=== PATIENT | female | born 1990 | race Caucasian/White ===

== ENCOUNTER 2018-06-09 08:52 | Observation (INO) | payer OTHER ==
[~2018-06-09] VITALS: Ht 152.4 cm; Wt 77.6 kg
[~2018-06-09 08:52] MED LIST: IBUP-2070 PO; PREN1TAB80 PO
[2018-06-09 09:28] VITALS: BP 116/66
== END 2018-06-09 11:00 | disposition home or self-care (01) ==
LOC: 4S 08:52
PROVIDERS: ADMIT Obstetrics & Gynecology; ATTEND Obstetrics & Gynecology
DX: O40.3XX0 Polyhydramnios, third trimester, not applicable or unspecified (principal); Z3A.38 38 weeks gestation of pregnancy
CPT/HCPCS: 81002; G0378

== ENCOUNTER 2018-06-13 08:03 | Inpatient (IN) | payer OTHER ==
[~2018-06-13] VITALS: Ht 159 cm; Wt 76.7 kg
[2018-06-13] MEDS ORDERED: OXYTOCIN 30 UNITS/LACT RINGERS 500 ML IV ONE (08:04)
[2018-06-13] MEDS ORDERED: LIDOCAINE/PF 1% 30 ML VIAL INJ PRN (08:15)
[2018-06-13] MEDS ORDERED: METOCLOPRAMIDE HCL 5 MG/ML 2 ML VIAL IVP PRN (08:15)
[2018-06-13] MEDS ORDERED: OXYGEN THERAPY IH SCH (08:15)
[2018-06-13] MEDS ORDERED: CITRIC ACID/SODIUM CITRATE 30 ML SOLUTION UDCUP PO PRN (08:15)
[2018-06-13] MEDS ORDERED: FentaNYL CITRATE-PF 100 MCG/2 ML VIAL IVP PRN (08:15)
[2018-06-13] MEDS ORDERED: PNV1TABL54 PO (08:22)
[2018-06-13 08:26] VITALS: BP 110/61
[2018-06-13] MEDS: RINGERS SOLUTION,LACTATED 1,000 ML IV SCH ×3 (08:44→19:33)
[2018-06-13 08:59] LABS: BASOPHILS % (AUTO) 0.2 % (0.0-2.0); EOSINOPHILS % (AUTO) 0.4 % (1.0-6.0); HEMATOCRIT 39.1 % (36-46); HEMOGLOBIN 13.6 g/dL (12.0-16.0); LYMPHOCYTES # (AUTO) 1.4 K/uL (1.0-4.8); LYMPHOCYTES % (AUTO) 18.4 % (22.0-44.0); MEAN CORPUSCULAR HEMOGLOBIN 31.2 pg (26.0-34.0); MEAN CORPUSCULAR HGB CONC 34.7 G/dL (31.0-37.0); MEAN CORPUSCULAR VOLUME 90 fL (80-100); MONOCYTES # (AUTO) 0.6 K/uL (0.1-1.0); MONOCYTES % (AUTO) 7.6 % (2.0-9.0); NEUTROPHILS # (AUTO) 5.5 K/uL (1.8-7.7); NEUTROPHILS % (AUTO) 73.4 % (40.0-70.0); PLATELET COUNT (AUTO) 149 K/uL (150-450); RED BLOOD CELL COUNT(AUTO) 4.36 MIL/uL (4.00-5.20); RED CELL DISTRIBUTION WIDTH 13.3 % (11.5-14.5)
[2018-06-13] MEDS ORDERED: DINOPROSTONE 10 MG VAGINAL SUPPOSITORY VG ONE (09:15)
[2018-06-13] MEDS: RINGERS SOLUTION,LACTATED 1,000 ML IV PRN ×2 (19:28→20:34)
[2018-06-13] MEDS ORDERED: BUTORPHANOL TARTRATE 2 MG/ML VIAL IVP PRN (20:00)
[2018-06-13] MEDS ORDERED: ROPIVACAINE HCL/PF 0.2% 100 ML ED ONE (20:11)
[2018-06-13] MEDS ORDERED: -PHARMACY NOTE- MISC ONE (21:15)
[2018-06-13] MEDS ORDERED: ROPIVACAINE HCL/PF 0.2% 100 ML ED PRN (22:45)
[2018-06-13] MEDS ORDERED: ONDANSETRON HCL 4 MG/2 ML VIAL IVP PRN (22:45)
[2018-06-13] MEDS ORDERED: DiphenhydrAMINE HCL 50 MG/ML VIAL IVP PRN (22:45)
[2018-06-14] MEDS: RINGERS SOLUTION,LACTATED 1,000 ML IV SCH ×2 (00:37→06:29)
[2018-06-14] MEDS ORDERED: OXYTOCIN 30 UNITS/LACT RINGERS 500 ML IV PRN (04:38)
[2018-06-14] MEDS ORDERED: ACETAMINOPHEN/CODEINE 300-30 MG TABLET PO PRN ×2 (10:00)
[2018-06-14] MEDS ORDERED: GLYCERIN/WITCH HAZEL LEAF 40 PADS JAR TP PRN (10:00)
[2018-06-14] MEDS ORDERED: LANOLIN 7 GM OINTMENT TP PRN (10:00)
[2018-06-14] MEDS ORDERED: BENZOCAINE 20%/MENTHOL 56 GM SPRAY CANISTER TP PRN (10:00)
[2018-06-14] MEDS: IBUPROFEN 800 MG TABLET PO SCH ×2 (11:37→18:56)
[2018-06-14] MEDS ORDERED: MAGNESIUM HYDROXIDE SUSPENSION 30 ML UDCUP PO SCH (21:00)
[2018-06-15] MEDS: IBUPROFEN 800 MG TABLET PO SCH ×2 (01:05→07:16)
== END 2018-06-15 10:58 | disposition home or self-care (01) | DRG 807 ==
LOC: OBSVTOIN 08:03 → 4S 08:03
PROVIDERS: ADMIT Obstetrics & Gynecology; ATTEND Obstetrics & Gynecology
PROC: 10E0XZZ Delivery of Products of Conception, External Approach (ICD-10-PCS; principal; 2018-06-14)
PROC: 3E0R3BZ Introduction of Anesthetic Agent into Spinal Canal, Percutaneous Approach (ICD-10-PCS; 2018-06-14)
PROC: 00HU33Z Insertion of Infusion Device into Spinal Canal, Percutaneous Approach (ICD-10-PCS; 2018-06-14)
PROC: 10907ZC Drainage of Amniotic Fluid, Therapeutic from Products of Conception, Via Natural or Artificial Opening (ICD-10-PCS; 2018-06-14)
PROC: 0UQMXZZ Repair Vulva, External Approach (ICD-10-PCS; 2018-06-14)
DX: O71.82 Other specified trauma to perineum and vulva (principal); Z37.0 Single live birth; Z3A.39 39 weeks gestation of pregnancy
CPT/HCPCS: 86850; 86900; 86901; J0595; J2590; J2795; J3490; J7120